=== PATIENT | male | born 1965 | race Caucasian/White ===

== ENCOUNTER 2024-09-15 15:55 | Emergency (ER) | payer OTHER ==
[2024-09-15] MEDS: Bacitracin Oint 1 GM U/D Packet TOP ONE (16:20)
[2024-09-15] MEDS: Diphtheria,Pertussis(Acell),Tetanus Vaccine 0.5 ML Syringe IM ONE (16:23)
[2024-09-15] MEDS: Amoxicillin 500 MG Cap PO ONE (16:28)
== END 2024-09-15 16:30 | disposition home or self-care (01) ==
LOC: LB.ED 15:55
DX: S61.412A Laceration without foreign body of left hand, initial encounter (principal); Z23 Encounter for immunization; W26.0XXA Contact with knife, initial encounter; Y93.89 Activity, other specified
CPT/HCPCS: 90471; 90715; 99283-25; A9270-GY